=== PATIENT | male | born 1945 | race Caucasian/White ===

== ENCOUNTER 2016-05-11 10:30 | Inpatient (IN) | payer MEDICARE, BC ==
[~2016-05-11] VITALS: Ht 185.4 cm; Wt 120.1 kg
--- NOTE | ~2016-05-11 | DS ---
PATIENT'S NAME: RENETTA ACE [facility] AGE: 70 Y [address] 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 SECONDARY DIAGNOSES: 1. GERD. 2. Dysphagia. 3. Restrictive lung disease. 4. CAD. 5. Hyperlipidemia. 6. Chronic gastritis. PROCEDURE PERFORMED: Bilateral total knee arthroplasties. HISTORY: The patient is a 70-year-old male, who presents with advanced bilateral knee degenerative joint disease and associated severely compromised activities of daily living. The patient has decided to proceed with total knee arthroplasty after having been thoroughly counseled regarding the risks, benefits, limitations and alternatives. Please refer to the outpatient clinic notes and admission history and physical for this patient. HOSPITAL COURSE: The patient underwent bilateral total knee arthroplasty on 05/08/2016 without complications. Spinal anesthesia plus periarticular local anesthesia was utilized. The patient received 24 hours of perioperative prophylactic antibiotics and remained hemodynamically stable, neurovascularly intact throughout the entire hospital course. The postoperative prophylactic deep venous thrombosis prophylaxis consisted of Xarelto, early mobilization and pneumatic compression devices. Daily physical therapy for gait training, transfer training range of motion and quadriceps isometric exercises were received. The patient progressed well in physical therapy. On the date of discharge, 05/11/2016, the incision at the knee was healing well and showed no signs of infection. DISPOSITION: TCU. DISCHARGE ACTIVITY: The patient is to bear weight as tolerated with range of motion and quadriceps isometric exercises as instructed. The operative extremity is to be elevated at least 90% of the day. There is to be sterile 4x4 gauze dressings to the incision daily. Dr. Van is to be notified immediately if there is any increased pain, fevers, chills erythema or drainage. PATIENT'S NAME: RENETTA ACE [facility] AGE: 70 Y [address] ROOM: [place] [address] LOCATION: [facility] ADMIT DATE: 05/08/2016 Discharge Summary DISCHARGE DATE: 05/11/2016 FAMILY PHYSICIAN: Raiza Bailey MD ATTENDING PHYSICIAN: Perla Van DISCHARGE MEDICATIONS: 1. Xarelto 10 mg 1 tablet p.o. daily for 12 days for postoperative DVT prophylaxis. 2. Hydromorphone 2 mg 1-2 tablets p.o. every 4 hours p.r.n. for pain. 3. Diazepam 5 mg 1/2 to 1 tablet p.o. every 6 hours p.r.n. for muscle spasms. 4. Diphenhydramine 25 mg 1-2 tablets p.o. at bedtime p.r.n. for sleep. 5. The patient was then instructed to continue all his pre-admission medications as instructed by his Internal Medicine Doctor. ACTIVITY: Gentle range of motion until followup appointment. FOLLOWUP: Followup appointment is to be with Dr. Van's office on 05/15/2016 for his initial postoperative evaluation with x-rays and for staple removal. KADEEM MACIEL PA-C FOR PERLA VAN MD SMW/modl /[id number] d: 05/24/16801 t: 06/06/16 0752, DISCHARGE SUMMARY
--- NOTE | ~2016-05-11 | DS ---
PATIENT'S NAME: RENETTA ACE [facility] AGE: 70 Y [address] ROOM: [place] [address] LOCATION: 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 SECONDARY DIAGNOSES: 1. GERD. 2. Dysphagia. 3. Restrictive lung disease. 4. CAD. 5. Hyperlipidemia. 6. Chronic gastritis. PROCEDURE PERFORMED: Bilateral total knee arthroplasties. HISTORY: The patient is a 70-year-old male, who presents with advanced bilateral knee degenerative joint disease and associated severely compromised activities of daily living. The patient has decided to proceed with total knee arthroplasty after having been thoroughly counseled regarding the risks, benefits, limitations and alternatives. Please refer to the outpatient clinic notes and admission history and physical for this patient. HOSPITAL COURSE: The patient underwent bilateral total knee arthroplasty on 05/08/2016 without complications. Spinal anesthesia plus periarticular local anesthesia was utilized. The patient received 24 hours of perioperative prophylactic antibiotics and remained hemodynamically stable, neurovascularly intact throughout the entire hospital course. The postoperative prophylactic deep venous thrombosis prophylaxis consisted of Xarelto, early mobilization and pneumatic compression devices. Daily physical therapy for gait training, transfer training range of motion and quadriceps isometric exercises were received. The patient progressed well in physical therapy. On the date of discharge, 05/11/2016, the incision at the knee was healing well and showed no signs of infection. DISPOSITION: TCU. DISCHARGE ACTIVITY: The patient is to bear weight as tolerated with range of motion and quadriceps isometric exercises as instructed. The operative extremity is to be elevated at least 90% of the day. There is to be sterile 4x4 gauze dressings to the incision daily. Dr. Tillman is to be notified immediately if there is any increased pain, fevers, chills erythema or drainage. PATIENT'S NAME: RENETTA ACE [facility] AGE: 70 Y [address] ROOM: [place] [address] LOCATION: [facility] ADMIT DATE: 05/08/2016 Discharge Summary DISCHARGE DATE: 05/11/2016 FAMILY PHYSICIAN: Raiza Bailey MD ATTENDING PHYSICIAN: Sánchez Tillman DISCHARGE MEDICATIONS: 1. Xarelto 10 mg 1 tablet p.o. daily for 12 days for postoperative DVT prophylaxis. 2. Hydromorphone 2 mg 1-2 tablets p.o. every 4 hours p.r.n. for pain. 3. Diazepam 5 mg 1/2 to 1 tablet p.o. every 6 hours p.r.n. for muscle spasms. 4. Diphenhydramine 25 mg 1-2 tablets p.o. at bedtime p.r.n. for sleep. 5. The patient was then instructed to continue all his pre-admission medications as instructed by his Internal Medicine Doctor. ACTIVITY: Gentle range of motion until followup appointment. FOLLOWUP: Followup appointment is to be with Dr. Tillman's office on 05/15/2016 for his initial postoperative evaluation with x-rays and for staple removal. KADEEM MACIEL PA-C FOR MD ED ERWINW/karenl /[id number] d: t: 05/24/16 1230, DISCHARGE SUMMARY
--- NOTE | ~2016-05-11 | DS ---
PATIENT'S NAME: RENETTA ACE [facility] AGE: 70 Y [address] ROOM: [place] [address] LOCATION: [facility] ADMIT DATE: 05/11/2016 Discharge Summary DISCHARGE DATE: 05/23/2016 FAMILY PHYSICIAN: Raiza Bailey MD ATTENDING PHYSICIAN: Perla Van PRIMARY DIAGNOSIS: Status post bilateral total knee arthroplasties. SECONDARY DIAGNOSES: 1. Deep vein thrombosis prophylaxis. 2. Gastroesophageal reflux disease. 3. Obesity. 4. Restrictive lung disease. 5. History of lung nodule. 6. Urinary retention. 7. Hyperlipidemia. HISTORY: The patient is a 70-year-old male, who underwent a bilateral total knee arthroplasty on 05/08/2016 without complications. He had a benign postoperative course. He decided to transfer to a longterm facility for further nursing care and physical therapy. HOSPITAL COURSE: The patient was transferred to transitional care unit on 05/11/2016. He remained hemodynamically stable and neurovascularly intact in his entire hospital course. He remained on postoperative deep venous thrombosis prophylaxis, which consisted of Xarelto, early mobilization and pneumatic compression devices. He received daily physical therapy for gait training, transfer training, range of motion and quadriceps isometric exercises and progressed well in physical therapy. The nursing staff also provided daily dressing changes as needed and monitored his wound periodically. On the day of discharge on 05/23/2016, the incision at both knees were healing well and showed no signs of infection or skin necrosis. DISPOSITION: To home. DISCHARGE INSTRUCTIONS: 1. Discharge diet was a regular diet. 2. Discharge activity: He was to bear weight as tolerated with range of motion and quadriceps isometric exercises as instructed. He was to keep his operative extremities elevated at least 90% of the day. There were to be sterile 4x4 gauze dressings to the incision daily. He was to notify Dr. Van immediately if he experienced any increased pain, fever, chills, erythema, or drainage. DISCHARGE MEDICATIONS: PATIENT'S NAME: RENETTA ACE [facility] AGE: 70 Y [address] ROOM: [place] [address] LOCATION: [facility] ADMIT DATE: 05/11/2016 Discharge Summary DISCHARGE DATE: 05/23/2016 FAMILY PHYSICIAN: Raiza Bailey MD ATTENDING PHYSICIAN: Perla Van 1. Oxycodone ER 10 mg 1 tablet twice daily for pain. 2. Diazepam 5 mg 1/2 to 1 tablet p.o. every 6 hours as needed for muscle spasms. 3. Hydromorphone 2 mg 1 to 2 tablets p.o. every 4 hours p.r.n. for pain. He was then instructed to continue all of his other preadmission medications as instructed by his internal medicine doctor. FOLLOWUP: Followup appointment was to be with Dr. Van's office on 05/23/2016 for his initial postoperative evaluation with bilateral knee x-rays and for facundo removal. KADEEM MACIEL PA-C FOR PERLA VAN MD SMW/modl /[id number] d: 05/30/16517 t: 05/30/16 0911, DISCHARGE SUMMARY
--- NOTE | ~2016-05-11 | DS ---
PATIENT'S NAME: RENETTA ACE [facility] AGE: 70 Y [address] 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 SECONDARY DIAGNOSES: 1. GERD. 2. Dysphagia. 3. Restrictive lung disease. 4. CAD. 5. Hyperlipidemia. 6. Chronic gastritis. PROCEDURE PERFORMED: Bilateral total knee arthroplasties. HISTORY: The patient is a 70-year-old male, who presents with advanced bilateral knee degenerative joint disease and associated severely compromised activities of daily living. The patient has decided to proceed with total knee arthroplasty after having been thoroughly counseled regarding the risks, benefits, limitations and alternatives. Please refer to the outpatient clinic notes and admission history and physical for this patient. HOSPITAL COURSE: The patient underwent bilateral total knee arthroplasty on 05/08/2016 without complications. Spinal anesthesia plus periarticular local anesthesia was utilized. The patient received 24 hours of perioperative prophylactic antibiotics and remained hemodynamically stable, neurovascularly intact throughout the entire hospital course. The postoperative prophylactic deep venous thrombosis prophylaxis consisted of Xarelto, early mobilization and pneumatic compression devices. Daily physical therapy for gait training, transfer training range of motion and quadriceps isometric exercises were received. The patient progressed well in physical therapy. On the date of discharge, 05/11/2016, the incision at the knee was healing well and showed no signs of infection. DISPOSITION: TCU. DISCHARGE ACTIVITY: The patient is to bear weight as tolerated with range of motion and quadriceps isometric exercises as instructed. The operative extremity is to be elevated at least 90% of the day. There is to be sterile 4x4 gauze dressings to the incision daily. Dr. Van is to be notified immediately if there is any increased pain, fevers, chills erythema or drainage. PATIENT'S NAME: RENETTA ACE [facility] AGE: 70 Y [address] ROOM: [place] [address] LOCATION: [facility] ADMIT DATE: 05/08/2016 Discharge Summary DISCHARGE DATE: 05/11/2016 FAMILY PHYSICIAN: Raiza Bailey MD ATTENDING PHYSICIAN: Perla Van DISCHARGE MEDICATIONS: 1. Xarelto 10 mg 1 tablet p.o. daily for 12 days for postoperative DVT prophylaxis. 2. Hydromorphone 2 mg 1-2 tablets p.o. every 4 hours p.r.n. for pain. 3. Diazepam 5 mg 1/2 to 1 tablet p.o. every 6 hours p.r.n. for muscle spasms. 4. Diphenhydramine 25 mg 1-2 tablets p.o. at bedtime p.r.n. for sleep. 5. The patient was then instructed to continue all his pre-admission medications as instructed by his Internal Medicine Doctor. ACTIVITY: Gentle range of motion until followup appointment. FOLLOWUP: Followup appointment is to be with Dr. Van's office on 05/15/2016 for his initial postoperative evaluation with x-rays and for staple removal. KADEEM MACIEL PA-C FOR PERLA VAN MD SMW/modl /[id number] d: 05/24/16801 t: 05/24/161919, DISCHARGE SUMMARY
[~2016-05-11 10:30] MED LIST: PRILOSEC OTC20 MG PO; SYMBICORT 80-10.2 GM INH
--- NOTE | 2016-05-11 11:22 | NUR ---
D: Nursing Admission Summary From [address] [place] [address] I: Nursing interventions provided to support the patient's individual plan of care R: MOBILITY-- Moves with 1 assist walker and gaitbelt, aware of surroundings and limitations. NUTRITION-- Regular diet, good appetite. SKIN/INCISIONS/WOUNDS-- Bilateral knee incisions stapled, covered with gauze and tegaderm. SELF CARES-- Able to do own self cares. BOWEL/BLADDER-- Continent of both. RESPIRATORY-- Lungs clear, may get oxygen if needed for low saturations. PAIN-- Does have pain especially with getting up and down. Takes dilaudid for pain. PSYCHOSOCIAL-- Good support system, daughter is a nurse at [employer]. COGNITION-- Alert and oriented x 3, very talkative. SPECIAL NEEDS-- Glasses, bilateral hearing aides, chrissy hose. BLEEDING-- On Xarelto until 05/20/16. SENSORY IMPAIRMENTS/DENTAL NEEDS: Glasses, has own teeth. TEACHING NEEDS-- INFECTION CONCERNS: Surgical incisions. RISK FOR ELOPEMENT: None NEED FOR BED/MOVEMENT ALARM: At night per protocol DISMISSAL PLANS: To home with son in [place]. Other: P: Current plan of care reviewed and updated CARLENE Bragg
--- NOTE | 2016-05-12 01:16 | NUR ---
Significant Event:A/O. 1 assist gaitbelt and walker. Irwin, guaze and tubigrip intact to bilateral knees. R) knee scant amount of sersang drainage present. Saline lock to R) hand, flushes. Pain control is an issue. IVP Dilaudid 0.2mg q10min for breakthrough pain. New order for Oxycontin PO BID. Dialudid 4 mg PO given for pain too. Ice replaced frequently, bilaterally. Gallo hose off, foot pumps on. Currently resting in bed. Call light in reach. Follow up:
--- NOTE | 2016-05-12 11:57 | NUR ---
Significant Event: Patient alert and oriented. [place] to bilateral knees intact. Both knees have bruising and edema. Guaze changed today. Tubigrip on. Taking Dilaudid and Valium for pain. Follow up:
--- NOTE | 2016-05-13 03:40 | NUR ---
Significant Event:A/O. 1 assist with gaitbelt and walker. Saline lock to R) hand flushes. Vincent,guaze and tubigrip intact to bilateral knees. Some dried drainage to R) knee. Patient has some urgency and fullness, some issues voiding. PRN medications. Dilaudid 4mg X2 last at 0025. Valium @ 2210. Ice to knees. Gallo hose off. Foot pumps on. Call light within reach. Follow up:
--- NOTE | 2016-05-13 15:02 | NUR ---
Significant Event: ASSUMED CARES AT 1300. 4MG DILAUDID GIVEN AT 1430. AMBULATES WITH 1 SBA USING GAIT BELT AND WALKER. PLEASANT AND COOPERATIVE WITH CARES. Follow up:
--- NOTE | 2016-05-14 03:32 | NUR ---
Significant Event: Patient alert and oriented x3. Up with one assist. up to see patient regarding patient and family concerns on increased swelling and redness up to groin. No temp. Vitals stable. then called and started on flomax and lasix for fluid retention. Valium given x2 and dilaudid given x3 this shift. Ice and foot pumps on. Voiding with no complications Follow up:
[2016-05-14 06:07] LABS: ANION GAP 12.8 (10.0-19.0); CREATININE 1.4 mg/dL (0.6-1.3); POTASSIUM 3.8 mMol/L (3.7-5.1)
--- NOTE | 2016-05-14 16:51 | NUR ---
Significant Event: AMBULATES WITH ASSIST OF 1 USING GAIT BELT AND WALKER. DILAUDID GIVEN X2 THIS SHIFT AND VALIUM GIVEN X1 THIS SHIFT. BOTH LAST AT 1300. EZ WRAP TO BILATERAL KNEES, SHOWER TODAY WITH NEW GAUZE APPLED TO KNEES. HELD IN PLACE BY TUBIGRIP. INCISION WELL APPROXIMATED WITHOUT DRAINAGE. KATHIE REMAIN IN PLACE. PLEASANT AND COOPERATIVE WITH CARES. Follow up:
--- NOTE | 2016-05-15 03:36 | NUR ---
Significant Event: Patient alert and oriented x3. Up with one assist and walker. Gauze and tubigrib over facundo to bilateral knees. Edges approximated and no drainage. CSM WNL. Left leg slightly more edematous than right. On scheduled pain medication and has received PRN valium and dilaudid routinely. Vital signs stable, on room air. Pleasant/cooperative with cares Follow up: monitor pain and edema, encourage activity
--- NOTE | 2016-05-15 14:13 | NUR ---
CONSULT RECEIVED D/T PREALB 9. PT DOES HAVE EDEMA WHICH COULD BE FALSLY DEPRESSING PREALB. PT WAS EATING 75-100% ON ADMIT. INTAKE HAS DECLINED. WILL ADD ENSURE ENLIVE BID TO INC PRO INTAKE.
--- NOTE | 2016-05-15 14:13 | NUR ---
Significant Event: Nursing cares until 1300. Patient alert and oriented. Up with 1 assist. Bilateral knees with facundo intact. Dressing with tubigrip changed. Taking Dilaudid and Valium for pain. Has alot of bruising to bilateral legs. Follow up:
--- NOTE | 2016-05-15 15:59 | NUR ---
Took over cares at 1300. Pt had dilaudid 4 mg at 1510 for bilat knee pain rated at 3. New ice to knees. edema and ecchymosis of bilat legs. Dressings dry and intact over stapled incisions, Walked in damico with PT. Is up in recliner at this time.
--- NOTE | 2016-05-15 16:06 | NUR ---
attempts to visit with patient Sunday05-12-16 and today unsuccessful due to conflict with therapies or patient on the phone. will attempt again tomorrow.
--- NOTE | 2016-05-16 03:22 | NUR ---
Significant Event: Patient alert and oriented x3. Transfers with one assist and walker. Vincent to bilateral knees, with gauze and tubigrip over. Edges approximated, no drainage. CSM WNL. Edema improving. Dilaudid and valium given for pain, reports increased stiffness. Vital signs stable, on room air. Pleasant/cooperative with cares Follow up: monitor pain
--- NOTE | 2016-05-16 13:32 | NUR ---
Significant Event: A/0 X 3, 1 ASSIST WALKER/GB, ICE TO BLE AT ALL TIMES, GUAZE CHANGED, TUBIGRIP AND OSCAR HOSE ON, 1+EDEMA BLE, VS WNL, DILAUDID 4MG GIVEN PRN FOR PAIN. PT/OT SERVICES. Follow up:
--- NOTE | 2016-05-16 14:06 | NUR ---
TCU-Social Assessment & History Marital status: Recent within last six months Children/Grandchildren: son Monroe is a banker in [place] & daughter Marianne is a nurse at [employer] & another son lives in [place] Advanced Directive: On file DPOA: On file Name of DPOA: Marianne Oconnell & Monroe Frederick Admitted from: [address] [place] [address] Admission date to TCU: 05/11/16 Reason for admission: Continued OT/PT after bilateral knee replacement surgery Patient/family received resident rights upon admission: Yes on acute care Prior level of functioning: Independent Prior living situation: In his own home in [place], [place] Financial resources: Medicare and supplemental policy Resources used/available: family and friend support, outpatient therapy, DME Family support available: Yes, daughter Marianne is a nurse in [place] and son Monroe in [place] is a banker and will open up his house for his dad to live in upon discharge Understands nature of health condition: Yes Recognizes impact of health condition on lifestyle: Yes, prefers not to live alone and wants to be close to therapy upon discharge Occupation/Vocation/Education: [employer] Behavior/Emotional needs: pleasant and cooperative Legal concerns: N/A Spiritual: [place] Discharge goal: To stay with son in [place] and do outpatient therapy Activities: Patient will be encouraged to participate in "ala carte" activities offered during his short stay on TCU. Patient enjoys visiting on the phone. Looks forward to visits with his family. A current calendar of events is posted at bedside.
--- NOTE | 2016-05-16 15:29 | NUR ---
met with daughter Marianne and discussed DME. She will try and borrow a walker from a friend. If not available, aware of [employer]. Daughter aware of [facility] [place] [facility] for other DME like shoe horn, sock aid, master electrician and possibly a shower chair. Can have MD/PA write a Rx for DME, to save 7% sales tax and give to daughter. daughter in agreement to d/c plan for 05-25-16 with outpatient therapy.
--- NOTE | 2016-05-17 03:04 | NUR ---
Significant Event:Patient alert and oriented x3. Up with one assist. Had a bowel movement, miralax was held. Valium and dilaudid given x1 each with continued pain rating 3-4/10. [place] to bilateral knees with gauze and tubigrip over, no drainage. CSM WNL. Ice and foot pumps on. Follow up:
--- NOTE | 2016-05-17 16:50 | NUR ---
Significant Event: A/0 X 3, 1 ASSIST WALKER/GB, KATHIE/INCISIONS TO BLE- INTACT NO DRAINAGE, HAD SHOWER TODAY WITH OT, GUAZE AND TUBIGRIP CHANGED. PRN PAIN MEDICAITION GIVEN REQUESTED, PT/OT SERVICES. OSCAR HOSE ON. FOOT PUMPS ON. Follow up:
--- NOTE | 2016-05-18 04:48 | NUR ---
Shift Summary: Patient can ambulate with one assist, gait belt, and walker. Has difficulty with [id number]. Bilateral knee incisions free from drainage. Has +3 pitting edema to bilateral lower legs. Ezywrap ice packs to both knees. Good pain control with 2 Dilaudid tabs (total 4mg) and Tylenol at 0336. Voids without difficulty. Good appetite. Uses call light appropriately.
--- NOTE | 2016-05-18 15:06 | NUR ---
tcu team meeting patient doing well with therapies. made Mod I in his room this afternoon. 200' SBA and doing stairs. will work on car transfers with OT and uneven surfaces outside with PT. intake poor, ensure BID. team recommends moving up d/c to Sunday05-23-16. Daughter Marianne notified and in agreement to plan. She would prefer an afternoon appt with on Sunday05-23-16, as she is scheduled to work at [employer] that morning. If can't get afternoon appt, she will not work that day.
--- NOTE | 2016-05-18 19:09 | NUR ---
Significant Event:A/0 X 3, MADE MOD I IN ROOM TODAY, STILL NEEDS HELP GETTING LEGS IN BED, OSCAR HOSE ON, KATHIE REMOVED TO BILATERAL KNEES, BENZOIN, STERISTRIPS APPLIED. PAIN MEDICATION GIVEN 4MG DILAUDID LAST AT 1300 ALONG WITH 5MG VALIUM, CONTINUES TO HAVE 1+EDEMA BLE, PT/OT SERVICES. WORKED ON CAR TRANSFERS TODAY. PLANNING TO DISCHARGE TO [facility] NEXT SUNDAY. Follow up:
--- NOTE | 2016-05-19 01:54 | NUR ---
Significant Event:Alert/oriented x3. Dilaudid 4 MG PO given at 1940 for c/o Bilateral knee pain. New ice packs given at this time. Valium 5 Mg PO give at 2202 per patient request. Dilaudid repeated at 0130 for c/o L) knee pain. Patient states that he wants Valium when he can receive it. New ice packs given at 0130. Paitent requests pillows placed under knees. Mod I in room. Takes self to bathroom. Babbles to self and anyone who is in the room. Takes medicaiton without complications. Follow up:
--- NOTE | 2016-05-19 13:47 | NUR ---
Significant Event: Alert/oriented. VSS. Mod I in room with walker. Bilateral knee incisions approx with CDI steri strips. Right knee has some increased swelling and surrounding area is pink to red. Wero Ghosh here to assess this am. New orders are copius ice to bilateral knees and elevation to bilateral knees. Scheduled oxy and PRN valium and dilaudid given for pain control. Follow up:
--- NOTE | 2016-05-20 01:20 | NUR ---
Significant Event:Alert/oriented. Daughter in room visiting. Patient utilizes ice packs to bilateral knees. Steri-strips in place, edges of surgical incision is well approximated. Received scheduled Oxycontin ER along with PRN Dilaudid 4 mg and 5 mg Valium for pain control. Follow up:
--- NOTE | 2016-05-20 15:53 | NUR ---
Significant Event: Alert and oriented X 3. BP 135/74 HR 83 SAT 94% RR 16 Temp 97.8. Bilateral knees +2 edema and slightly reddened. Bilateral lower legs +2-3 edema. Dilaudid given every 4 hours, last given at 1615. Valium given X 2, last given at 1615. Scheduled Oxycodone also given X 1 at 0731. Ice applied to knees and legs raised on pillows. Mod I in room. No IV access. Pleasant and cooperative with cares. Complaining about room and bed during cares this am. Follow up:
--- NOTE | 2016-05-21 06:01 | NUR ---
Significant Event: PATIENT SLEPT WELL THROUGHOUT NIGHT. LAST DOSE OF VALIUM/DILAUDID AT 0530. PATIENT UP INDEPENDENTLY IN ROOM. PLAN TO D/C TO HOME ON THE . Follow up:
--- NOTE | 2016-05-21 18:00 | NUR ---
Significant Event: Pt alert, cooperative with cares. C/o pain always rated 2-3/10; gave prn dilaudid at 0807, 1336 and 1730. Gave prn valium at 1336. Steri strips intact, quite a bit of edema around his knees. Mod Ind in room. CSM WNL. Follow up:
--- NOTE | 2016-05-22 04:32 | NUR ---
Significant Event: PATIENT MOD I IN ROOM. DID NOT SLEEP WELL.LEFT KNEE HURTING ALOT. 1 DILAUDID AND 1 VALIUM @ 1911. ICE BILATERAL KNEES. PLAN TO D/C HOME ON THE 7TH Follow up:
--- NOTE | 2016-05-22 12:42 | NUR ---
Student nurse provided patient cares from 0600 to 1230. Hugo Stanley RN, [facility] Instructor
--- NOTE | 2016-05-22 16:07 | NUR ---
Significant Event: Follow up: MOd I in room. Ice to bilateral knees, steri stips on place. Given dilaudid 2 mg last at 1230. UP to shower this am, student nurse supervised the activity. Plans to discharge tomorrow to his home.
--- NOTE | 2016-05-23 04:41 | NUR ---
Significant Event: A/Ox3. Mod I in room. Steristrips intact to bilateral knees. Requested prn Valium x1 at hs. Takes 2 Dilaudid prn for pain and scheduled Oxycontin. Ice to knees throughout the night. Follow up:
--- NOTE | 2016-05-23 05:45 | NUR ---
D: Nursing Discharge Summary From 05/11/16 to 05/23/16 I: Nursing interventions provided to support the patient's individual plan of care R: MOBILITY-- Independent with walker NUTRITION-- Regular diet SKIN/INCISIONS/WOUNDS-- Bilateral knees surgical incisions well approximated, steri strips intact SELF CARES-- Independent, some assistive devices used BOWEL/BLADDER-- continent RESPIRATORY-- room air PAIN-- Dialudid for pain control PSYCHOSOCIAL-- Family attentive to wants and needs COGNITION-- Alert and oriented SPECIAL NEEDS-- Outpatient physical therapy BLEEDING-- Xarelto for DVT prophylaxsis SENSORY IMPAIRMENTS/DENTAL NEEDS: Glasses TEACHING NEEDS-- Signs and symptoms of infection, warmth, redness, drainage INFECTION CONCERNS: Handwashing RISK FOR ELOPEMENT: None NEED FOR BED/MOVEMENT ALARM: Hospital protocol DISMISSAL PLANS: Dismiss to son's home with outpatient physical therapy Other: P: Current plan of care reviewed and updated Boyd Rivera RN 05/23/16
[2016-05-23 10:37] LABS: ANION GAP 14.5 (10.0-19.0); CALCIUM 8.4 mg/dL (8.5-10.5); CREATININE 1.4 mg/dL (0.6-1.3); POTASSIUM 3.5 mMol/L (3.7-5.1)
[2016-05-23] MEDS ORDERED: COLACE100 MG PO (11:21)
[2016-05-23] MEDS ORDERED: LASIX20 MG PO (11:21)
[2016-05-23] MEDS ORDERED: OXYCONTIN EXTEN10 MG PO (11:22)
[2016-05-23] MEDS ORDERED: MIRALAX17 GM PO (11:25)
[2016-05-23] MEDS ORDERED: FLOMAX0.4 MG PO (11:34)
[2016-05-23] MEDS ORDERED: TYLENOL EXTRA500 MG PO (11:34)
[2016-05-23] MEDS ORDERED: VALIUM5 MG PO (11:35)
[2016-05-23] MEDS ORDERED: DILAUDID 2MG(HYD2 MG PO (11:35)
--- NOTE | 2016-05-23 16:19 | NUR ---
Significant Event: Follow up:Patient discharging to his home. discussed discharge directions and follow up appointments, medications as ordered. Patient and daughter state understanding. Discharging to Dr Tillman office.
== END 2016-05-23 13:55 | disposition disaster alternative care site (69) | DRG 561 ==
LOC: GSNF 10:30
PROVIDERS: Family Medicine; Internal Medicine; ADMIT Orthopaedic Surgery
DX: Z47.1 Aftercare following joint replacement surgery (principal); N18.3 Chronic kidney disease, stage 3 (moderate); Z96.653 Presence of artificial knee joint, bilateral; K21.9 Gastro-esophageal reflux disease without esophagitis; I25.10 Atherosclerotic heart disease of native coronary artery without angina pectoris; E66.9 Obesity, unspecified; J98.9 Respiratory disorder, unspecified; R33.9 Retention of urine, unspecified; E78.5 Hyperlipidemia, unspecified; R60.0 Localized edema
CPT/HCPCS: J1170

== ENCOUNTER → 2016-05-23 | Outpatient (CLI) | payer MEDICARE, BC ==
[~2016-05-23] MED LIST changes: +COLACE100 MG PO; +DILAUDID 2MG(HYD2 MG PO; +FLOMAX0.4 MG PO; +LASIX20 MG PO; +MIRALAX17 GM PO; +OXYCONTIN EXTEN10 MG PO; +TYLENOL EXTRA500 MG PO; +VALIUM5 MG PO
--- NOTE | ~2016-05-23 | ENPV ---
Vascular Lower Extremities DVT Study Procedure Demographics Patient Name RENETTA ACE Date of Study 05/23/2016 Patient Number [id number] Gender Male Date of 1945 Age 70 Visit Number [id number] Height Accession Number [id number] Weight Room Number BSA BMI Referring Primo Ji MD Interpreting Jason Bernal MD Physician Leo Eastman V Physician Physician Ordering Physician Primo Ji MD Biomedical Instrument Technician Electric Mule Operator Danyell Jain RVT Conclusions Summary No evidence of deep vein thrombosis or superficial thrombophlebitis in the lower extremities bilaterally . Procedure Type of Study: Veins:Lower Extremities DVT Study, Venous Duplex Lower Extremity Bilateral. Indications for Study:Swelling of Limb and Pain in Limb. Appropriate Use Criteria:9 Patient Status:Routine. Study Location:Vascular Lab. Technical Quality:Adequate visualization. - Preliminary reported to:Dr. Tillman's Nurse Angela. Velocities are measured in cm/s ; Diameters are measured in cm Right Lower Extremities DVT Study Measurements Right 2D and Doppler Measurements + + + + +------+------+ + !Location !Visualized!Compressibility!Thrombosis!Signal!Reflux!Reflux ! ! ! ! ! ! ! !(sec) ! + + + + +------+------+ + !GSV Thigh !Yes !Yes !None !Phasic! ! ! + + + + +------+------+ + !Common !Yes !Yes !None !Phasic! ! ! !Femoral ! ! ! ! ! ! ! + + + + +------+------+ + !Prox !Yes !Yes !None !Phasic! ! ! !Femoral ! ! ! ! ! ! ! + + + + +------+------+ + !Mid Femoral!Yes !Yes !None !Phasic! ! ! + + + + +------+------+ + !Dist !Yes !Yes !None !Phasic! ! ! !Femoral ! ! ! ! ! ! ! + + + + +------+------+ + !Popliteal !Yes !Yes !None !Phasic! ! ! + + + + +------+------+ + !Gastroc !Yes !Yes !None ! ! ! ! + + + + +------+------+ + !PTV !Yes !Yes !None ! ! ! ! + + + + +------+------+ + !Peroneal !Yes !Yes !None ! ! ! ! + + + + +------+------+ + Left Lower Extremities DVT Study Measurements Left 2D and Doppler Measurements + + + + +------+------+ + !Location !Visualized!Compressibility!Thrombosis!Signal!Reflux!Reflux ! ! ! ! ! ! ! !(sec) ! + + + + +------+------+ + !GSV Thigh !Yes !Yes !None !Phasic! ! ! + + + + +------+------+ + !Common !Yes !Yes !None !Phasic! ! ! !Femoral ! ! ! ! ! ! ! + + + + +------+------+ + !Prox !Yes !Yes !None !Phasic! ! ! !Femoral ! ! ! ! ! ! ! + + + + +------+------+ + !Mid Femoral!Yes !Yes !None !Phasic! ! ! + + + + +------+------+ + !Dist !Yes !Yes !None !Phasic! ! ! !Femoral ! ! ! ! ! ! ! + + + + +------+------+ + !Popliteal !Yes !Yes !None !Phasic! ! ! + + + + +------+------+ + !Gastroc !Yes !Yes !None ! ! ! ! + + + + +------+------+ + !PTV !Yes !Yes !None ! ! ! ! + + + + +------+------+ + !Peroneal !Yes !Yes !None ! ! ! ! + + + + +------+------+ + Signature dtt: MARTHA SANDS dtjosh: 05/23/16 1629 Physician Self Edit
== END | disposition disaster alternative care site (69) ==
LOC: GCAR 16:00
DX: M79.89 Other specified soft tissue disorders (principal); M79.661 Pain in right lower leg; M79.662 Pain in left lower leg